=== PATIENT | female | born 1975 | race Caucasian/White ===

== ENCOUNTER 2016-07-01 17:09 | Emergency (ER) | payer OTHER ==
[~2016-07-01] VITALS: Ht 165.1 cm; Wt 79.4 kg
[~2016-07-01 17:09] MED LIST: CEFTIN500 M1 PO; CLINDAMYCIN HY300 MG PO; FERROUS SULFAT325 M1 PO; IMITREX ST6 MG/0.52 IM; KEFLEX500 MG PO; METOCLOPRAMIDE10 MG PO; MOBIC15 M1 PO; MOTRIN 400 MG400 MG PO; OMEPRAZOLE40 MG PO; PREDNISOLONE5 MG PO; PREDNISONE 10MG10 M1 PO; PREDNISONE 20MG20 MG; VICODIN5-300 PO; ZOMIG5 M1 NAS
[2016-07-01] MEDS ORDERED: ZITHROMAX250 M2 PO (21:40)
[2016-07-01] MEDS ORDERED: AFRIN30 ML NASB (21:40)
[2016-07-01] MEDS ORDERED: PROAIR HFA8.5 GM INH (21:40)
[2016-07-01] MEDS ORDERED: GUAIFENESIN-COD10 ML PO (21:40)
[2016-07-01] MEDS ORDERED: IBUPROFEN600 M1 PO (21:40)
--- NOTE | 2016-07-01 21:42 | ED INFLUENZA/URI COMPLAINT ---
History of Present Illness General Chief Complaint: General Adult Stated Complaint: "GLANDS ARE SWOLLEN", URISYMPTOMS Source: patient, old records Exam Limitations: no limitations Vital Signs & Intake/Output Vital Signs & Intake/Output Vital Signs Date Time Temp Pulse Resp B/P Pulse O2 O2 Flow FiO2 Ox Delivery Rate 07/014 101.9 07/01 2148 101.9 148 18 136/63 97 Room Air 07/01 2041 Room Air 07/01 1755 102.8 07/01 1745 102.8 148 18 136/91 96 Room Air ED Intake and Output 07/02 0000 07/01 1200 Intake Total Output Total Balance Patient 175 lb Weight Allergies Coded Allergies: amoxicillin (From AUGMENTIN) (Intermediate, VOMITING 01/17/16) clavulanic acid (From AUGMENTIN) (Intermediate, VOMITING 01/17/16) Reconcile Medications Albuterol Sulfate (Proair Hfa) 90 MCG HFA.AER.AD 2-4 PUF INH Q4-6 PRN PRN shortness of breath Azithromycin (Zithromax) 250 MG TABLET 1 TAB PO DAILY bronchitis Cefuroxime Axetil (Ceftin) 500 MG TABLET 1 TAB PO BID IFN with food Ibuprofen 600 MG TABLET 1 TAB PO Q6PRN PRN pain, fever with food Meloxicam (Mobic) 15 MG TABLET 1 TAB PO DAILY PRN PAIN Oxymetazoline HCl (Afrin) 0.05 % SPRAY 2 SPRAY NASB BID sinusitis Robitussin AC (Guaifenesin-Codeine Syrup) 200 MG-20 MG/10 ML LIQUID 10 ML PO Q6P PRN cough Sumatriptan Succinate (Imitrex) 6 MG/0.5 ML PEN.INJCTR 6 MG IM PRN MIGRAINES (Reported) Zolmitriptan (Zomig) 5 MG SPRAY 1 SPRAY KIRILL PRN MIGRAINES (Reported) Triage Note: PT TO TRIAGE WITH C/O CONGESTION, DRY COUGH, FEVER, HEADACHE x4DAYS. TEMP 102.8 IN TRIAGE. PT TOOK MOTRIN AT HOME ABOUT 4HR AGO. PT MEDICATED WITH TYLENOL 975MG PO IN TRIAGE PER MD KYLE ORDER. Triage Nurses Notes Reviewed? yes Onset: several days prior to admission Duration: day(s):, constant, continues in ED, getting worse Timing: recent history Severity: moderate Prior Episodes/Possible Cause: illness exposure No Modifying Factors: none Associated Symptoms: cough, fever/chills, muscle aches, nasal congestion, nasal drainage LMP (ages 10-50): unknown : No Patient currently breastfeeds: No HPI: Several days prior to admission patient complains of anorexia productive cough nasal congestion and body aches chills. She then developed fever. She denies chest pain shortness of breath dysuria rash bleeding . Past History Travel History Traveled to [place] past 21 day No Medical History Any Pertinent Medical History? 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 No Review of Systems Review of Systems Constitutional: Reports: see HPI, chills, fever, malaise. EENTM: Reports: see HPI, nasal congestion, throat pain. Respiratory: Reports: see HPI, cough, sputum production. Cardiovascular: Reports: no symptoms. GI: Reports: no symptoms. Genitourinary: Reports: no symptoms. Musculoskeletal: Reports: no symptoms. Skin: Reports: no symptoms. Neurological/Psychological: Reports: no symptoms. Hematologic/Endocrine: Reports: no symptoms. Immunologic/Allergic: Reports: no symptoms. All Other Systems: Reviewed and Negative Physical Exam Physical Exam General Appearance: well developed/nourished, alert, awake, anxious, moderate distress Head: atraumatic, normal appearance Eyes: Bilateral: normal appearance, PERRL, EOMI. Ears, Nose, Throat: moist mucous membrane, nasal congestion, nasal drainage, pharyngeal erythema Neck: normal inspection, supple, full range of motion, lymphadenopathy (R), lymphadenopathy (L) Respiratory: normal breath sounds, chest non-tender, no respiratory distress, quiet respiration, lungs clear Cardiovascular: regular rate/rhythm, normal peripheral pulses, norml femoral pulses equa Peripheral Pulses: 4+ carotid (R), 4+ carotid (L) Gastrointestinal: normal bowel sounds, soft, non-tender, no organomegaly Back: normal inspection, normal range of motion Extremities: normal inspection, normal capillary refill, normal range of motion, no edema Neurologic/Psych: no motor/sensory deficits, awake, alert, oriented x 3, normal gait, normal mood/affect, manager dental II-XII nml as tested Reflexes: 2+: bicep (R), bicep (L). Skin: intact, normal color, warm/dry Lymphatic: adenopathy Core Measures Severe Sepsis Present: No Septic Shock Present: No Progress Differential Diagnosis: influenza, pneumonia, pharyngitis, sinusitis Plan of Care: Orders Procedure Date/time Status RAPID VIRAL INFLUENZA A 07/01 1937 Complete THROAT CULTURE W/QUICK STREP 07/01 1937 Active Microbiology 07/01 2013 NASOPHARYN: Influenza Virus A & B Rapid Smear - COMP Initial ED EKG: none Departure Departure Time of Disposition: 2136 Disposition: HOME OR SELF CARE Condition: Stable Clinical Impression Primary Impression: Sinusitis, acute Qualifiers: Sinusitis location: unspecified location Recurrence: not specified as recurrent Qualified Code: J01.90 - Acute sinusitis, unspecified Secondary Impressions: Bronchitis Fever Qualifiers: Fever type: unspecified Qualified Code: R50.9 - Fever, unspecified Referrals: CASIMIRO SIEGEL,MACHO Rowan (PCP/Family) Departure Forms: Customer Survey General Discharge Information RELEASE- WORK Prescriptions: Current Visit Scripts Azithromycin (Zithromax) 1 TAB PO DAILY #4 TAB Oxymetazoline HCl (Afrin) 2 SPRAY NASB BID #30 ML Ibuprofen 1 TAB PO Q6PRN PRN pain, fever #50 TAB with food Albuterol Sulfate (Proair Hfa) 2-4 PUF INH Q4-6 PRN PRN shortness of breath #1 INHAL Robitussin AC (Guaifenesin-Codeine Syrup) 10 ML PO Q6P PRN cough #240 ML
[2016-07-01 21:49] VITALS: BP 136/63
== END 2016-07-01 21:55 ==
LOC: ERH 17:09
DX: J01.90 Acute sinusitis, unspecified (principal)
CPT/HCPCS: 87804; 87804-59; J0456

== ENCOUNTER 2016-07-03 09:52 | Inpatient (IN) | payer OTHER ==
[~2016-07-03] VITALS: Ht 165.1 cm; Wt 81.6 kg
[~2016-07-03 09:52] MED LIST changes: +AFRIN30 ML NASB; +GUAIFENESIN-COD10 ML PO; +IBUPROFEN600 M1 PO; +PROAIR HFA8.5 GM INH; +ZITHROMAX250 M2 PO
--- NOTE | 2016-07-03 10:02 | ED GENERAL ADULT ---
See Addendum History of Present Illness General Chief Complaint: Dyspnea (COPD, CHF, Other) Stated Complaint: SOB Source: patient, old records, EMS Exam Limitations: no limitations Vital Signs & Intake/Output Vital Signs & Intake/Output Vital Signs Date Time Temp Pulse Resp B/P Pulse O2 O2 Flow FiO2 Ox Delivery Rate 07/03 1137 144 32 76/56 Nasal 5.0L Cannula 07/03 1030 Nasal 4.0L Cannula 07/03 1012 102.0 155 36 90/60 Nasal 3.0L Cannula Allergies Coded Allergies: amoxicillin (From AUGMENTIN) (Intermediate, VOMITING 07/03/16) clavulanic acid (From AUGMENTIN) (Intermediate, VOMITING 07/03/16) Reconcile Medications Albuterol Sulfate (Proair Hfa) 90 MCG HFA.AER.AD 2-4 PUF INH Q4-6 PRN PRN shortness of breath Azithromycin (Zithromax) 250 MG TABLET 1 TAB PO DAILY bronchitis Cefuroxime Axetil (Ceftin) 500 MG TABLET 1 TAB PO BID IFN with food Ibuprofen 600 MG TABLET 1 TAB PO Q6PRN PRN pain, fever with food Meloxicam (Mobic) 15 MG TABLET 1 TAB PO DAILY PRN PAIN Oxymetazoline HCl (Afrin) 0.05 % SPRAY 2 SPRAY NASB BID sinusitis Robitussin AC (Guaifenesin-Codeine Syrup) 200 MG-20 MG/10 ML LIQUID 10 ML PO Q6P PRN cough Sumatriptan Succinate (Imitrex) 6 MG/0.5 ML PEN.INJCTR 6 MG IM PRN MIGRAINES (Reported) Zolmitriptan (Zomig) 5 MG SPRAY 1 SPRAY KIRILL PRN MIGRAINES (Reported) Triage Nurses Notes Reviewed? yes HPI: PT PRESENTS BY AMBULANCE FOR PROFOUND WEAKNESS, THIRSTY, PROFOUND DIARRHEA. pATIENT STATES THAT SHE WAS SEEN THE OTHER DAY AND DIAGNOSED WITH BRONCHITIS. SHEWAS STARTED ON A Z-PACK. AFTER THE SECOND DOSE, SHE DEVELOPED PROUND DIARRHEA. SHE DENIES NAUSEA OR VOMITING, NO ABD PAIN. NO FEVERS BUT +CHILLS. SHE SATTES THAT SHE HAS BEEN DRINKING "A LOT OF WATER." PT FOUND TO HAVE WHAT APPEAR TO BE TRACK COATES ON HER ARMS BUT SGHE STATES THAT IT WAS FROM CLEANING AROUND HER HOUSE. Past History Travel History Traveled to [place] past 21 day No Medical History Any Pertinent Medical History? 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 No Review of Systems Review of Systems Constitutional: Reports: see HPI, chills, weakness. EENTM: Reports: no symptoms. Respiratory: Reports: see HPI, short of breath. Cardiovascular: Reports: no symptoms. GI: Reports: see HPI, diarrhea. Genitourinary: Reports: no symptoms. Musculoskeletal: Reports: no symptoms. Skin: Reports: no symptoms. Neurological/Psychological: Reports: no symptoms. Hematologic/Endocrine: Reports: no symptoms. Immunologic/Allergic: Reports: no symptoms. All Other Systems: Reviewed and Negative Physical Exam Physical Exam General Appearance: well developed/nourished, alert, awake, anxious, severe distress Head: atraumatic, normal appearance Eyes: Bilateral: PERRL, EOMI. Ears, Nose, Throat: normal pharynx, DRY MUCOSA Neck: normal inspection, supple, full range of motion Respiratory: normal breath sounds, chest non-tender, no respiratory distress, lungs clear, [place] Cardiovascular: normal peripheral pulses, tachycardia Gastrointestinal: normal bowel sounds, soft, non-tender, no organomegaly Back: normal inspection, normal range of motion Extremities: normal inspection, normal capillary refill, normal range of motion, no edema Neurologic/Psych: no motor/sensory deficits, awake, alert, oriented x 3, normal mood/affect Skin: diaphoresis, pallor Lymphatic: no anterior cervical cris Core Measures ACS in differential dx? No CVA/TIA Diagnosis: No Severe Sepsis Present: Yes Septic Shock Present: Yes ED Sepsis Exam Date of Focused Sepsis Exam: 07/03/16 Time of Focused Sepsis Exam: 1100 Sepsis Cardiac Exam: Tachycardia Sepsis Resp Exam: CTA Sepsis Cap Refill Exam: <2 Sec Sepsis Peripheral Pulse Exam: Weak Sepsis Peripheral Pulse Location: Radial Sepsis Skin Color Exam: Mottled, Pale Skin Temp/Moisture Exam: Cool/Dry Progress Differential Diagnoses I considered the following diagnoses in my evaluation of the patient: [ DEHYDRATION, SEPSIS, C.DIFF, UTI, BACTERMIA] Plan of Care: Orders Procedure Date/time Status LACTIC ACID 07/03 1401 Active Pathway - chart 07/03 1139 Active House Staff 07/03 1139 Active Code Status 07/03 1139 Active Patient Data 07/03 1133 Active Add-on Test (ER Only) 07/03 1133 Active Admit to inpatient 07/[address] ABD & PELVIS W/O IV CONTRAS 07/03 1121 Active XRY-PORTABLE CHEST XRAY 07/03 1108 Active Montoya, Insertion/Removal/Asses 07/03 1108 Active CULTURE,URINE 07/03 1108 Active URINE DRUGS OF ABUSE 07/03 1101 Active LACTIC ACID 07/03 1101 Active ARTERIAL BLOOD GAS (GEN) 07/03 1023 Complete BLOOD CULTURE 07/03 1023 Active Telemetry/Nurse Supervisor 07/03 1001 Active C.DIFFICILE 07/03 1001 Active URINALYSIS 07/03 1001 Active TROPONIN LEVEL 07/03 1001 Complete HUMAN BETA HCG SCREEN 07/03 1001 Complete COMPREHENSIVE METABOLIC PANEL 07/03 1001 Complete CBC WITHOUT DIFFERENTIAL 07/03 1001 Complete EKG 07/03 1001 Active VTE Mechanical Prophylaxis 07/03 UNK Active Vital Signs 07/03 UNK Active Intake & Output 07/03 UNK Active Current Medications Sig/Narendra Start time Last Medication Dose Stop Time Status Admin Heparin Sodium 5,000 UNIT Q8 07/03 1400 UNVr (Porcine) Sodium Chloride 1,000 ML BOLUS ONE 07/03 1115 AC (Normal Saline 0.9%) 07/03 1214 Sodium Chloride 1,000 ML BOLUS ONE 07/03 1115 AC (Normal Saline 0.9%) 07/03 1214 Laboratory Tests 07/03/16 1111: Methadone Screen Pending, Barbiturate Screen Pending, Ur Phencyclidine Scrn Pending, Amphetamines Screen Pending, U Benzodiazepines Scrn Pending, Urine Cocaine Screen Pending, Urine Cannabis Screen Pending, Urine Color Pending, Urine Clarity Pending, Urine pH Pending, Ur Specific [place] Pending, Urine Protein Pending, Urine Ketones Pending, Urine Nitrite Pending, Urine Bilirubin Pending, Urine Urobilinogen Pending, Ur Leukocyte Esterase Pending, Ur Microscopic SEDIMENT EXAMINED, Urine RBC Pending, Urine Hemoglobin Pending, Urine Glucose Pending 07/03/16 1040: pH 7.33 L, pCO2 24 L, pO2 83, HCO3 13 L, ABG O2 Sat (Measured) 92.0 L, P-50 (Temp Corrected) Y, Carboxyhemoglobin 0.3 L, O2 Concentration % 5L, Temperature 102.0 H, O2 Delivery Method NC, Phlebotomy Draw Site RIGHT RADIAL 07/03/16 1020: Anion Gap 19 H, Estimated GFR 10 L, BUN/Creatinine Ratio 7.9, Glucose 178 H, Calcium 7.2 L, Total Bilirubin 4.4 H, AST 93 H, ALT 120 H, Alkaline Phosphatase 47, Troponin I < 0.01, Total Protein 5.4 L, Albumin 2.6 L, Globulin 2.8, Albumin/Globulin Ratio 0.9 L, Total Beta HCG NEGATIVE, CBC w Diff MAN DIFF ORDERED, RBC 4.03 L, MCV 82.8, MCH 28.0, RDW 14.6 H, MPV 10.4, Lymphocytes 93 H, Monocytes 3, Eosinophils 3, Basophils 1, Platelet Estimate DECREASED, Poikilocytosis 2+, Anisocytosis 1+, Reeves Cells 2+, PUBS MCHC 33.8 Microbiology 07/03 1111 URINE ROUT: Urine Culture - RECD 07/03 1057 BLOOD: Blood Culture - RECD 07/03 1045 STOOL: Clostridium difficile Toxin A & B - RECD 07/03 1025 BLOOD: Blood Culture - RECD RECOMMEND HIV TESTING (PRACHI SIEGEL,KENDRA Lazaro) Diagnostic Imaging: Viewed by Me: Radiology Read. Discussed w/RAD: Radiology Read. Pre-Hospital EKG: S TACH WITH NSSTT CHANGES Initial ED EKG: S TACH AT 147, NSSTT CHANGES Prior EKG: unchanged Rhythm Strip: sinus tachycardia Comments: HOLD OFF ON ABX UNTIL C.DIFF COMES BACK. Departure Departure Disposition: STILL A PATIENT Condition: Critical Clinical Impression Primary Impression: Metabolic acidosis Secondary Impressions: Acute renal failure, Diarrhea, Sepsis, Septic shock Referrals: CASIMIRO SIEGEL,MACHO Rowan (PCP/Family) Departure Forms: Customer Survey General Discharge Information Admission Note Spoke With: ABIGAIL SOLO MD Documentation of Exam: Documentation of any treatments & extenuating circumstances including Concerns Regarding Discharge (functional status, medication knowledge or non-compliance, living conditions, etc.) that warrant an admission rather than observation: [ AGGRESSIVE HYDRATION, RENAL CONSULT, ID CONSULT, FOLLOW UP C.DIFF, MAY NEED HIV TESTING, ICU ADMISSION] Critical Care Note Critical Care Note Critical Care Time: mins: (45 MIN)
[2016-07-03 10:46] LABS: HEMATOCRIT 33.4 % (37-47); MEAN CORPUSCULAR HGB CONC 33.8 G/DL (33.0-37.0); MEAN CORPUSCULAR VOLUME 82.8 FL (81.0-99.0); MEAN PLATELET VOLUME 10.4 FL (7.4-10.4); PLATELET COUNT 49 /CUMM (130-400); RBC DISTRIBUTION WIDTH 14.6 % (11.5-14.5); RED BLOOD CELL CT 4.03 /CUMM (4.20-5.40)
[2016-07-03 11:04] LABS: WHITE BLOOD CELL COUNT 1.1 /CUMM (4.8-10.8)
--- NOTE | 2016-07-03 12:04 | RADIOLOGY REPORT ---
EXAMINATION: XR PORTABLE CHEST CLINICAL INFORMATION: Shortness of breath. Pneumonia. COMPARISON: Chest x-ray dated 02/27/2012. TECHNIQUE: Portable AP semierect view of the chest was obtained. FINDINGS: The cardiomediastinal silhouette is within normal limits in size. There is dense opacity seen in the right midlung, obscuring the right heart border, new from prior exam. This is nonspecific, but in the clinical setting provided, most likely represents a dense lobar pneumonia. There is also some patchy opacity centrally within the right lower lobe. Remainder of the lungs is clear. Bony structures are unremarkable. IMPRESSION: Dense consolidation in right midlung, likely in the upper lobe, abutting the right minor fissure, suspicious for lobar pneumonia. There is also some extension into the right lower lobe. Close clinical correlation and follow-up chest x-ray is recommended post treatment to document resolution of findings and exclude an underlying mass. Findings discussed with Dr. Schaffer 07/03/2016, 11:55 AM.
--- NOTE | 2016-07-03 12:28 | History & Physical ---
NEGRO SIEGEL,WILFRIDO 07/03/16 1214: General Information and HPI MD Statement: I have seen and personally examined KARINAREYNOLD Robert and documented this H &P. The patient is a 40 year old F who presented with a patient stated chief complaint of [acute shortness of breath]. Source of Information: patient, family, old records Exam Limitations: clinical condition, confusion History of Present Illness: 40 yo female with pmh of polysubstance abuse, subacute thyroiditis, migraine headache, anemia, current smoking (1 ppd > 10 yrs), who was treated for submandibular cellulitis in 2014, came from home due to worsening dyspnea for 3 days. She was restless with confusion, and most of information was from her boyfriend and her father. She and her boyfriend had upper respiratory symtpoms ( cough/sputum) from this Tuesday. Her boyfriend got better, but she developed fever at home, and she came to [facility] ED on 07/01 diagnosed as acute bronchitis/ sinusitis. Influenza A was negative at that time. She was discharged to home with po azithromycin. After 2 days of taking po azithromycin, she started having watery diarrhea > 5 times with mucous. She c/o abdominal pain but denies nausea/ vomiting. She has productive cough with yellowish sputum / shortness of breath. She denies dysuria or burning sensation. Current smoker. She denies any IV/INH drug abuse including cocaine/marijuana/heroine. Allergies/Medications Allergies: Coded Allergies: amoxicillin (From AUGMENTIN) (Intermediate, VOMITING 07/03/16) clavulanic acid (From AUGMENTIN) (Intermediate, VOMITING 07/03/16) Home Med list Albuterol Sulfate (Proair Hfa) 90 MCG HFA.AER.AD 2-4 PUF INH Q4-6 PRN PRN shortness of breath Atomoxetine HCl (Strattera) 40 MG CAPSULE 1 CAP PO QAM UNKNOWN (Reported) Azithromycin (Zithromax) 250 MG TABLET 1 TAB PO DAILY bronchitis Clonazepam 0.5 MG TABLET 1 TAB PO BID PRN ANXIETY (Reported) Eletriptan HBr (Relpax) 40 MG TABLET 1 TAB PO AD PRN MIGRAINE (Reported) Ibuprofen 600 MG TABLET 1 TAB PO Q6PRN PRN pain, fever with food Levonorgestrel (Mirena) 20 MCG/24 HOUR (5 YEARS) IUD CONTROL (Reported) Lisdexamfetamine Dimesylate (Vyvanse) 10 MG CAPSULE 1 CAP PO QAM CONCENTRATION (Reported) Naproxen 500 MG TABLET 1 TAB PO BID PRN PAIN/INFLAMMATION (Reported) Oxymetazoline HCl (Afrin) 0.05 % SPRAY 2 SPRAY NASB BID sinusitis Prochlorperazine Maleate 10 MG TABLET 1 TAB PO BID PRN MIGRAINES (Reported) Robitussin AC (Guaifenesin-Codeine Syrup) 200 MG-20 MG/10 ML LIQUID 10 ML PO Q6P PRN cough Sumatriptan 20 MG SPRAY 1 SPRAY KIRILL AD PRN MIGRAINES (Reported) Sumatriptan Succinate (Imitrex) 6 MG/0.5 ML PEN.INJCTR 6 MG AD AD PRN MIGRAINES (Reported) Past History Travel History Traveled to [place] past 21 day No Medical History Neurological: migraine EENT: NONE Cardiovascular: NONE Respiratory: NONE Gastrointestinal: NONE Hepatic: NONE Renal: NONE Musculoskeletal: NONE Psychiatric: polysubstance abuse Endocrine: subacute thyroiditis Blood Disorders: anemia Cancer(s): NONE FLIGHT SERVICE AGENT/Reproductive: NONE History of MRSA: No History of VRE: No History of CDIFF: No Surgical History Surgical History: Past Family/Social History Family History Relations & Conditions if any FATHER FH: kidney cancer FHx: thyroid cancer MOTHER FH: diabetes mellitus FHx: migraine headaches Psychosocial History Services at Home: None ETOH Use: denies use Illicit Drug Use: cocaine, heroin, DENIES CURRENT USE Functional Ability ADLs Independent: dressing, eating, toileting, bathing. Ambulation: independent IADLs Independent: shopping, housework, finances, food prep, telephone, transportation , medication admin. Sexual History Sexually Active Yes # of partners 1 Employment History Employment Employed Profession/Employer [employer] Review of Systems Review of Systems Constitutional: Reports: chills, diaphoresis, fever, weakness. EENTM: Reports: no symptoms. Cardiovascular: Reports: palpitations. Denies: chest pain, peripheral edema. Respiratory: Reports: cough, short of breath, sputum production. GI: Reports: abdominal pain, diarrhea. Denies: constipation, nausea, vomiting. Genitourinary: Denies: dysuria, frequency, pain. Musculoskeletal: Reports: no symptoms. Skin: Reports: change in skin color. Neurological/Psychological: Reports: confusion. Hematologic/Endocrine: Reports: no symptoms. Immunologic/Allergic: Reports: no symptoms. Exam & Diagnostic Data Last 24 Hrs of Vital Signs/I&O Vital Signs Date Time Temp Pulse Resp B/P Pulse O2 O2 Flow FiO2 Ox Delivery Rate 07/03 1245 130 20 90/00 Ventilator 07/03 1215 141 20 72/56 Nasal 5.0L Cannula 07/03 1137 144 32 76/56 Nasal 5.0L Cannula 07/03 1030 Nasal 4.0L Cannula 07/03 1012 102.0 155 36 90/60 Nasal 3.0L Cannula Intake & Output 07/03 1600 07/03 0800 07/03 0000 Intake Total 2000 Output Total Balance 2000 Intake, IV 2000 Patient 180 lb Weight Physical Exam General Appearance Severe Distress, CONFUSED, NOT ORIENTED X TIME, patient feels very tired/restless Skin No Rashes, No Breakdown, No Significant Lesion HEENT Atraumatic, PERRLA, EOMI, DRY MOUTH Neck Supple, No JVD, No LAD Lymphatic Cervical nl Cardiovascular Normal S1, Normal S2, No Murmurs, TACHYCARDIC Lungs COARSE BREATHNG SOUND, RHONCHI/RALES BILATERALLY Abdomen Soft, ALL 4 QUADRANT MILD TENDERNESS +, NO rTD Neurological Strength at 5/5 X4 Ext, Normal Tone, Reflexes 2+, pt is confused, unable to follow commands, moving all 4 extremities Extremities No Edema, diminished pulses, clammy Vascular Pulses Symmetrical, diminished pulses Body Front and Back (Adult) 1) 2 superficial skin wounds with scabs Last 24 Hrs of Labs/Dorian: Laboratory Tests 07/03/16 1111: Urine Opiates Screen > 4000.00 H, Methadone Screen 62, Barbiturate Screen 231 H, Ur Phencyclidine Scrn < 6.00, Amphetamines Screen 985, U Benzodiazepines Scrn 92, Urine Cocaine Screen 529 H, Urine Cannabis Screen < 5.00, Urinalysis MOD H , Urine Color YEL, Urine Clarity CLDY H, Urine pH 6.0, Ur Specific [place] 1.025, Urine Protein 100 H, Urine Ketones NEG, Urine Nitrite POS H, Urine Bilirubin POS@ICTO H, Urine Urobilinogen 1.0, Ur Leukocyte Esterase NEG, Ur Microscopic SEDIMENT EXAMINED, Urine RBC RARE, Urine WBC 3-5 H, Ur Epithelial Cells MANY H, Granular Casts RARE H, Urine Mucus FEW, Urine Hemoglobin MOD H, Urine Glucose 100 H 07/03/16 1040: pH 7.33 L, pCO2 24 L, pO2 83, HCO3 13 L, ABG O2 Sat (Measured) 92.0 L, P-50 (Temp Corrected) Y, Carboxyhemoglobin 0.3 L, O2 Concentration % 5L, Temperature 102.0 H, O2 Delivery Method NC, Phlebotomy Draw Site RIGHT RADIAL 07/03/16 1020: Anion Gap 19 H, Estimated GFR 10 L, BUN/Creatinine Ratio 7.9, Glucose 178 H, Calcium 7.2 L, Total Bilirubin 4.4 H, AST 93 H, ALT 120 H, Alkaline Phosphatase 47, Troponin I < 0.01, Total Protein 5.4 L, Albumin 2.6 L, Globulin 2.8, Albumin/Globulin Ratio 0.9 L, Total Beta HCG NEGATIVE, CBC w Diff MAN DIFF ORDERED, RBC 4.03 L, MCV 82.8, MCH 28.0, RDW 14.6 H, MPV 10.4, Lymphocytes 93 H, Monocytes 3, Eosinophils 3, Basophils 1, Platelet Estimate DECREASED, Poikilocytosis 2+, Anisocytosis 1+, [place] Cells 2+, PUBS MCHC 33.8, Hepatitis A IgM Ab Pending, Hep Bs Antigen NONREACTIVE, Hep B Core IgM Ab Conf Pending, Hepatitis C Antibody Pending, HIV 1&2 Ab Western Blot Pending Microbiology 07/03 1218 NASOPHARYN: Influenza Virus A & B Rapid Smear - CAN Cancelled: Cancelled via OE: Error 07/03 1219 LOWER RESP: Respiratory Culture - ORD 07/03 1219 LOWER RESP: Gram Stain - ORD 07/03 1111 URINE ROUT: Urine Culture - RECD 07/03 1057 BLOOD: Blood Culture - RECD 07/03 1045 STOOL: Clostridium difficile Toxin A & B - RECD 07/03 1025 BLOOD: Blood Culture - RECD Diagnostic Data EKG Results sinus tachycardia 147, normal axis, KS 132, QTc 426, PVCs CXR Results Dense consolidation in right midlung, likely in the upper lobe, abutting the right minor fissure, suspicious for lobar pneumonia. There is also some extension into the right lower lobe. Close clinical correlation and follow-up chest x-ray is recommended post treatment to document resolution of findings and exclude an underlying mass. Assessment/Plan Assessment: 40 yo female with history of polysubstance abuse with recent URI symptoms p/w acute respiratory failure 2/2 severe sepsis likely due to multilobar pneumonia / diarrhea (questionable C.diff) in the setting of cocaine/opiate abuse. Respiratory: Acute respiratory failure secondary to severe sepsis/multiplobar pneumonia. Pt was in severe respiratory distress with tachycardia / tachypnea while interviewing. She had PEA in ED at 12:35 pm and she was coded about 4 mins. She was intubated by Dr. Schaffer, continuing cardiac compression, IV epinephrine 1mg x 2 times were given. Continue mechanical ventilation, check ABG /chest xray after intubation. Infection: Severe sepsis likely multilobar pneumonia/questionable C.diff colitis. She has positive u tox cocaine/opiate/barbiturate. She had 2 superficial skin wound (?puncture wound) on Lt. hand. Will check HIV/hepatitis panel. Cover with broad spectrum abx Vancomycin/ceftazidime and azithromycin for atypical pneumonia. Will get CT head, chest, abdomen/pelvis WO contrast. follow up blood/sputum/urine cultures/c.diff. Cardiovascular: s/p CPR, severe sepsis with hypotension. Rt. femoral line was placed in ED. She was started on IV levophed in ED. Maintain MAP > 65. Will get cardiology consult. Last echo in 2014 showed normal EF 70% with no vegetation. Serial EKG/troponins, repeat echocardiogram, LE DVT doppler. Hematology: Pancytopenia with leukopenia, normocytic anemia, thrombocytopenia. Neutropenic / thrombocytopenic precaution. Guiac stool/sputum. Check HIV, LDH/ haptoglobin, manual diff for schistocytes. Check DIC pannel. Metabolic: High AG metabolic acidosis, lactic acid was not sent, follow lactic acids & bicarb level, ICU bundle @ 4pm. Will get serum Osm to calculate Osm gap. Alimentary: NPO for now Neurologic: Patient is altered, now on mechanical ventilation with acute respiratory failure, hold anesthetic agent, check stat head CT with positive U tox cocaine. DVT ppx: ALPS after checking LE doppler Full code now on mechanical ventilation & IV pressors. As Ranked By This Provider Problem List: 1. Septic shock 2. Pneumonia 3. Cardiopulmonary arrest 4. Acute renal failure 5. Metabolic acidosis 6. Diarrhea 7. Pancytopenia Core Measures/Miscellaneous Acute Coronary Syndrome ACS Diagnosis: No Cerebrovascular Accident CVA/TIA Diagnosis: No Congestive Heart Failure CHF Diagnosis: No Venous Thromboembolism VTE Risk Factors: Acute medical illness, Age > 40 VTE Prophylaxis Ordered Inpt: Mechanical (ALPS/TEDS) [facility] d/t: No contraindications No VTE Pharm Prophylaxis d/t: Platelets below ref range VTE Diagnosis: No VTE Type: NONE VTE Confirmed by (Test): NONE Severe Sepsis Severe Sepsis Present: Yes BC x2: Yes Lactic Acid x2: Yes IV ABX Broad Spectrum: Yes NS/LR Started: Yes Septic Shock Septic Shock Present: Yes BC x2: Yes Lactic Acid: Yes IV ABX Broad Spectrum: Yes Focused Exam Completed: Yes NS/LR 30ml/kg w/in 3hrs: Yes IV Vasopressors started: Yes Miscellaneous Documentation Attending Case Discussed With: ABIGAIL SOLO MD Primary Care Physician: MACHO KIRKPATRICK MD Patient sees these Specialists NA Level of Patient Care: Critical Care (CRI) Resident Review Statement Resident Statement: examined this patient, discussed with internal medicine doctor, agreed with internal medicine doctor, discussed with family, reviewed EMR data (avail), discussed with nursing , discussed with case mgmt, reviewed images, amended to note Other Findings: As above ABIGAIL SOLO MD 07/03/16 1311: Attending MD Review Statement Attending Statement Attending MD Statement: examined this patient, discuss w/resident/PA/VAMP SEAMER, agreed w/resident/PA/VAMP SEAMER, discussed with family, reviewed EMR data (avail), discussed with nursing, discussed with case mgmt, reviewed images, amended to note Attending Assessment/Plan: Impression 40 year old woman - Cardiac arrest - asystole - Acute hypoxemic respiratory failure - Multiorgan dysfunction - NELIDA - septic shock vs hypovolemic shock - positive drug toxicology for opiates, barbiturates and cocaine - pancytopenia - unresponsiveness Plan Respiratory -continue mechanical venitlation -stat abg -confirmatory cxr ID -Vancomycin/Ceftazadime/Zithromax -monitor levels given renal function -panculture -influenza swab -hiv check/hepatits panel check CVS -begin levophed -titrate to MAP of 65 -ECHO -BNP, troponin trend -Cardiology consultation Heme -leukopenia, thrombocytopenia, anemia -check LDH/heptaglobin -coags Metabolic -check lactate and trend if elevated -ins/outs -hydration -nephrology consultation is appreciated Alimentary -NPO Neuro - CT Head - Hypothermia protocol will be initiated CT Head/chest/abd/pelvis without contrast given renal failure DVT prophylaxis with ALPS after LE dopplers are completed TTS 60 min
--- NOTE | 2016-07-03 13:29 | Admission Certification ---
Admission Certification Certification Statement - As attending physician, I certify that at the time of - admission, based on clinical presentation, severity of - symptoms, need for further diagnostic testing and - therapeutic interventions, and risk of adverse outcomes - without in-hospital treatment, in my clinical assessment, - this patient requires an acute hospital stay for a minimum - of two nights or longer. I have also considered psychsocial - factors such as support system, advanced age, financial - issues, cognitive issues, and failed out-patient treatments, - past re-admission history, safety of patient, and lack of - compliance as applicable. Specific rationale supporting this admission is: acute hypoxemic respiratory failure requiring intubation, underlying septic vs hypovolemic shock requiring vasopressors critically ill, ICU level of care. Hypothermia protocol.
--- NOTE | 2016-07-03 13:46 | Cons- Nephrology ---
General Information and HPI Consulting Request Date of Consult: 07/03/16 Requested By: ABIGAIL SOLO MD Reason for Consult: NELIDA Source of Information: old records Exam Limitations: unable to give history, clinical condition History of Present Illness: The patient is a 40-year-old female with a history of polysubstance abuse, who was recently started on azithromycin for a fever and possible upper respiratory tract infection, by the emergency room. Labs were not drawn at that time last week. She now comes in with fever (102), weakness, diarrhea and shortness of breath. She became severely hypotensive in the ER and With agonal breathing and subsequently arrested and required 4 minutes of CPR, status post epinephrine 2. Olsen catheter was placed with minimal urine output. She's currently obtunded and unable to provide any history. I been asked to see her as her creatinine was 4.8 on admission. There is also a elevated anion gap metabolic acidosis and lactic acid is pending. She also noted to be pancytopenic with a white blood count 1.1 platelet count of 49 and hemoglobin of 11.3. Baseline creatinine was 0.6 in October 2014. Allergies/Medications Allergies: Coded Allergies: amoxicillin (From AUGMENTIN) (Intermediate, VOMITING 07/03/16) clavulanic acid (From AUGMENTIN) (Intermediate, VOMITING 07/03/16) Home Med List: Albuterol Sulfate (Proair Hfa) 90 MCG HFA.AER.AD 2-4 PUF INH Q4-6 PRN PRN shortness of breath Azithromycin (Zithromax) 250 MG TABLET 1 TAB PO DAILY bronchitis Cefuroxime Axetil (Ceftin) 500 MG TABLET 1 TAB PO BID IFN with food Ibuprofen 600 MG TABLET 1 TAB PO Q6PRN PRN pain, fever with food Meloxicam (Mobic) 15 MG TABLET 1 TAB PO DAILY PRN PAIN Oxymetazoline HCl (Afrin) 0.05 % SPRAY 2 SPRAY NASB BID sinusitis Robitussin AC (Guaifenesin-Codeine Syrup) 200 MG-20 MG/10 ML LIQUID 10 ML PO Q6P PRN cough Sumatriptan Succinate (Imitrex) 6 MG/0.5 ML PEN.INJCTR 6 MG IM PRN MIGRAINES (Reported) Zolmitriptan (Zomig) 5 MG SPRAY 1 SPRAY KIRILL PRN MIGRAINES (Reported) Current Medications: Current Medications Sig/Narendra Start time Last Medication Dose Route Stop Time Status Admin Albuterol Sulfate 3 ML Q4H 07/03 1215 AC INH Azithromycin 500 MG DAILY@1400 07/03 1400 AC Dextrose/Water 250 ML IV Ceftazidime 1,000 MG Q24H 07/03 1400 AC IV Ceftriaxone Sodium 0 .STK-MED ONE 07/03 1228 DC .ROUTE Ceftriaxone Sodium 1,000 MG ONCE ONE 07/03 1215 DC 07/03 IV 07/03 1216 1314 Epinephrine 1 MG ONCE ONE 07/03 1315 DC 07/03 IV 07/03 1316 1311 Epinephrine 1 MG ONCE ONE 07/03 1315 DC 07/03 IV 07/03 1316 1311 Heparin Sodium 5,000 UNIT Q8 07/03 1400 CAN (Porcine) SC Norepinephrine 0 .STK-MED ONE 07/03 1322 DC IV Norepinephrine 4 MG Q24H 07/03 1315 AC Sodium Chloride 250 ML IV Sodium Chloride 1,000 ML BOLUS ONE 07/03 1330 UNVr IV 07/03 1429 Sodium Chloride 1,000 ML BOLUS ONE 07/03 1330 UNVr IV 07/03 1429 Sodium Chloride 1,000 ML BOLUS ONE 07/03 1115 DC 07/03 IV 07/03 1214 1204 Sodium Chloride 1,000 ML BOLUS ONE 07/03 1115 DC 07/03 IV 07/03 1214 1309 Sodium Chloride 1,000 ML BOLUS ONE 07/03 1000 DC 07/03 IV 07/03 1059 1012 Sodium Chloride 1,000 ML BOLUS ONE 07/03 1000 DC 07/03 IV 07/03 1059 1121 Vancomycin HCl 1,000 MG ONE ONE 07/03 1400 AC Dextrose/Water 250 ML IV 07/03 1459 Review of Systems Review of Systems: Unable to obtain as obtunded and intubated Past History Travel History Traveled to [place] past 21 day No Medical History Neurological: migraine EENT: NONE Cardiovascular: NONE Respiratory: NONE Gastrointestinal: NONE Hepatic: NONE Renal: NONE Musculoskeletal: NONE Psychiatric: polysubstance abuse Endocrine: subacute thyroiditis Blood Disorders: anemia Cancer(s): NONE DIRECTOR PHARMACOLOGY/Reproductive: NONE Surgical History Surgical History: Family History Relations & Conditions If Any: FATHER FH: kidney cancer FHx: thyroid cancer MOTHER FH: diabetes mellitus FHx: migraine headaches Psychosocial History Services at Home: None ETOH Use: denies use Illicit Drug Use: cocaine, heroin, DENIES CURRENT USE Functional Ability ADLs Independent: dressing, eating, toileting, bathing. Ambulation: independent IADLs Independent: shopping, housework, finances, food prep, telephone, transportation , medication admin. Employment History Employment: Employed Profession/Employer: [employer] Exam & Diagnostic Data Vital Signs and I&O Vital Signs Date Time Temp Pulse Resp B/P Pulse O2 O2 Flow FiO2 Ox Delivery Rate 07/03 1245 130 20 90/00 Ventilator 07/03 1215 141 20 72/56 Nasal 5.0L Cannula 07/03 1145 94 Nasal 5.0L Cannula 07/03 1137 144 32 76/56 Nasal 5.0L Cannula 07/03 1030 Nasal 4.0L Cannula 07/03 1012 102.0 155 36 90/60 Nasal 3.0L Cannula Intake & Output 07/03 1600 07/03 0400 07/02 1600 07/02 0400 07/01 1600 07/01 040 Intake Total 1999 Output Total Balance 1999 Intake, IV 2000 Patient 180 lb Weight Physical Exam: General: intubated/obtunded HEENT: dry mucosa +dilated pupils Neck: negative for VICENTA CV: RRR, no m/r/g Pulm: CTAB, no rales Abd: soft no rebound/guarding Lower Ext: neg edema or chronic venous changes Back: negative for CVA tenderness Neuro: neg tremor, asterixis Skin: +mottled skin : + olsen catheter Results Pertinent Lab Results: Laboratory Tests 07/03 07/03 1111 1040 Blood Gas pH (7.35 - 7.45 PH) 7.33 L pCO2 (35 - 45 TORR) 24 L pO2 (80 - 100 TORR) 83 HCO3 (21 - 28 MEQ/L) 13 L ABG O2 Sat (Measured) (>96.0 %) 92.0 L P-50 (Temp Corrected) Y Carboxyhemoglobin (1.5 - 5.0 %) 0.3 L O2 Concentration % 5L Temperature (97.0 - 100.0 FARH) 102.0 H O2 Delivery Method NC Miscellaneous Phlebotomy Draw Site RIGHT RADIAL Toxicology Urine Opiates Screen (>2000 NG/ML) > 4000.00 H Methadone Screen (>300 NG/ML) 62 Barbiturate Screen (>200 NG/ML) 231 H Ur Phencyclidine Scrn (>25 NG/ML) < 6.00 Amphetamines Screen (>1000 NG/ML) 985 U Benzodiazepines Scrn (>200 NG/ML) 92 Urine Cocaine Screen (>300 NG/ML) 529 H Urine Cannabis Screen (>50 NG/ML) < 5.00 Urines Urinalysis MOD H Urine Color (YEL,AMB,STR) YEL Urine Clarity (CLEAR) CLDY H Urine pH (5.0 - 8.0) 6.0 Ur Specific [place] (1.001 - 1.035) 1.025 Urine Protein (NEG,<30 MG/DL) 100 H Urine Ketones (NEG) NEG Urine Nitrite (NEG) POS H Urine Bilirubin (NEG) POS@ICTO H Urine Urobilinogen (0.1 - 1.0 EU/dl) 1.0 Ur Leukocyte Esterase (NEG) NEG Ur Microscopic SEDIMENT EXAMINED Urine RBC (0 - 5 /HPF) RARE Urine WBC (0 - 2 /HPF) 3-5 H Ur Epithelial Cells (NONE,FEW) MANY H Granular Casts (NONE /LPF) RARE H Urine Mucus (FEW,NONE) FEW Urine Hemoglobin (NEG) MOD H Urine Glucose (N MG/DL) 100 H 07/03 07/03 1020 1020 Chemistry Sodium (137 - 145 mmol/L) 126 L Potassium (3.5 - 5.1 mmol/L) 3.8 Chloride (98 - 107 mmol/L) 90 L Carbon Dioxide (22 - 30 mmol/L) 17 L Anion Gap (5 - 16) 19 H BUN (7 - 17 mg/dL) 38 H Creatinine (0.5 - 1.0 mg/dL) 4.8 H Estimated GFR (>60 ml/min) 10 L BUN/Creatinine Ratio (7 - 25 %) 7.9 Glucose (65 - 99 mg/dL) 178 H Calcium (8.4 - 10.2 mg/dL) 7.2 L Total Bilirubin (0.2 - 1.3 mg/dL) 4.4 H AST (14 - 36 U/L) 93 H ALT (9 - 52 U/L) 120 H Alkaline Phosphatase (<127 U/L) 47 Lactate Dehydrogenase (313 - 618 U/L) Pending Troponin I (< 0.11 ng/ml) < 0.01 Total Protein (6.3 - 8.2 g/dL) 5.4 L Albumin (3.5 - 5.0 g/dL) 2.6 L Globulin (1.9 - 4.2 gm/dL) 2.8 Albumin/Globulin Ratio (1.1 - 2.2 %) 0.9 L Total Beta HCG (NEGATIVE) NEGATIVE Hematology CBC w Diff MAN DIFF ORDERED WBC (4.8 - 10.8 /CUMM) 1.1 *L RBC (4.20 - 5.40 /CUMM) 4.03 L Hgb (12.0 - 16.0 G/DL) 11.3 L Hct (37 - 47 %) 33.4 L MCV (81.0 - 99.0 FL) 82.8 MCH (27.0 - 31.0 PG) 28.0 RDW (11.5 - 14.5 %) 14.6 H Plt Count (130 - 400 /CUMM) 49 L MPV (7.4 - 10.4 FL) 10.4 Lymphocytes (20.5 - 51.1 %) 93 H Monocytes (1.7 - 9.3 %) 3 Eosinophils (0 - 5.0 %) 3 Basophils (0.0 - 2.0 %) 1 Platelet Estimate (ADEQUATE) DECREASED Poikilocytosis 2+ Anisocytosis 1+ [place] Cells 2+ PUBS MCHC (33.0 - 37.0 G/DL) 33.8 Haptoglobin Pending Serology Hepatitis A IgM Ab (NONREACTIVE) Pending Hep Bs Antigen (NONREACTIVE) NONREACTIVE Hep B Core IgM Ab Conf (NONREACTIVE) Pending Hepatitis C Antibody (NONREACTIVE) Pending HIV 1&2 Ab Western Blot (NONREACTIVE) Pending Assessment/Plan Assessment/Recommendations Assessment: Oliguric acute kidney injury: Highest the differential is ischemic ATN from hypotension and the PEA arrest in the emergency room. There may be a superimposed prerenal azotemia and would recommend aggressive IV hydration. Urinalysis reveals only rare red blood cells thus doubt vasculitis or acute RPGN. The CAT scan without contrast is ordered we'll rule out obstructive uropathy. Olsen catheter has been placed and ruled out urinary retention and she is oliguric. Doubt hemolytic uremic syndrome however would check LDH and haptoglobin, and manual differential to assess for schistocytes. She is also listed as taking when necessary ibuprofen so NSAID use may have contributed to AK on as well as cocaine use his U tox positive for cocaine. Urinalysis reveals 2+ protein but this is the setting of oliguria and positive nitrates so is not diagnostic of glomerular disease. We'll check HIV which can cause renal failure with proteinuria especially given the leukopenia. Given the pancytopenia and renal failure would also recommend screening for monoclonal protein is cannot rule out myeloma. There is no emergent dialytic need at this point in time. Metabolic acidosis with elevated anion gap: Concerning for lactic acidosis. Follow-up lactic acid level. Would also check serum osms to calculate osmolar gap is cannot rule out ethylene glycol or methanol ingestions. Sepsis: Workup per ICU team for C. difficile, follow-up blood cultures, urine cultures and recommended broad-spectrum IV antibiotics. PEA arrest: Cause unclear but may been respiratory event. Cannot rule out hypovolemia induced arrest, recommend aggressive IV hydration, Recommendations: Check coags, haptoglobin, LDH, SPEP, serum free light chains, serum immunoelectrophoresis, manual differential to look for schistocytes Check lactic acid level and repeat ABG Check serum osms Patient may require bicarbonate drip if acidemia worsens No emergent dialytic need currently Check HIV Broad-spectrum IV antibiotics Thank you for the consultation. Discussed with ICU team in detail. Valdez Johnson M.D.
--- NOTE | 2016-07-03 14:31 | Cons- Cardiology ---
General Information and HPI Consulting Request Date of Consult: 07/03/16 Requested By: ABIGAIL SOLO MD Reason for Consult: Septic shock. Source of Information: old records Exam Limitations: unable to give history, clinical condition History of Present Illness: Ms. Zapata is a 40-year-old female with a history of long-standing tobacco use, migraine headache, subacute thyroiditis, anemia, and polysubstance abuse, who was recently evaluated in the ED on 07/01/2016 for complaints of congestion, dry cough, headache, and feverish feelings over the previous 4 days with a documented fever of 102.8 and and started on azithromycin for presumed upper respiratory tract infection. A check for influenza A was negative. No other laboratory work or CXR was performed. She returned today with complaints of cough productive of yellowish sputum, shortness of breath, diarrhea 2 days into taking the azithromycin, increased thirst, weakness, and chills and was found to be febrile to 102. She denied any urinary tract symptoms. She denied the use of any recent illegal/ recreational drugs. In the ED she developed altered mental status followed by slowed respirations, bradycardia and became severely hypotensive with agonal breathing and subsequent asystole requiring ACLS for approximally 4 minutes with epinephrine 2, intubation, initiation of Levophed, etc. A Montoya catheter was placed with minimal urine output. Initial laboratory work revealed pancytopenia, NELIDA, hyperglycemia, hyponatremia, etc. At present, she is obtunded and unable to provide any history. Allergies/Medications Allergies: Coded Allergies: amoxicillin (From AUGMENTIN) (Intermediate, VOMITING 07/03/16) clavulanic acid (From AUGMENTIN) (Intermediate, VOMITING 07/03/16) Home Med List: Albuterol Sulfate (Proair Hfa) 90 MCG HFA.AER.AD 2-4 PUF INH Q4-6 PRN PRN shortness of breath Azithromycin (Zithromax) 250 MG TABLET 1 TAB PO DAILY bronchitis Cefuroxime Axetil (Ceftin) 500 MG TABLET 1 TAB PO BID IFN with food Ibuprofen 600 MG TABLET 1 TAB PO Q6PRN PRN pain, fever with food Meloxicam (Mobic) 15 MG TABLET 1 TAB PO DAILY PRN PAIN Oxymetazoline HCl (Afrin) 0.05 % SPRAY 2 SPRAY NASB BID sinusitis Robitussin AC (Guaifenesin-Codeine Syrup) 200 MG-20 MG/10 ML LIQUID 10 ML PO Q6P PRN cough Sumatriptan Succinate (Imitrex) 6 MG/0.5 ML PEN.INJCTR 6 MG IM PRN MIGRAINES (Reported) Zolmitriptan (Zomig) 5 MG SPRAY 1 SPRAY KIRILL PRN MIGRAINES (Reported) Review of Systems Review of Systems: Unobtainable, as patient obtunded. Past History Travel History Traveled to [place] past 21 day No Medical History Neurological: migraine EENT: NONE Cardiovascular: NONE Respiratory: NONE Gastrointestinal: NONE Hepatic: NONE Renal: NONE Musculoskeletal: NONE Psychiatric: polysubstance abuse Endocrine: subacute thyroiditis Blood Disorders: anemia Cancer(s): NONE GYM TEACHER/Reproductive: NONE Surgical History Surgical History: Family History Relations & Conditions If Any: FATHER FH: kidney cancer FHx: thyroid cancer MOTHER FH: diabetes mellitus FHx: migraine headaches Psychosocial History Services at Home: None ETOH Use: denies use Illicit Drug Use: cocaine, heroin, DENIES CURRENT USE Functional Ability ADLs Independent: dressing, eating, toileting, bathing. Ambulation: independent IADLs Independent: shopping, housework, finances, food prep, telephone, transportation , medication admin. Employment History Employment: Employed Profession/Employer [employer] Exam & Diagnostic Data Vital Signs and I&O Vital Signs Date Time Temp Pulse Resp B/P Pulse O2 O2 Flow FiO2 Ox Delivery Rate 07/03 1342 99.7 121 18 70/00 100 Ventilator 100% 07/03 1336 97.0 118 20 60/00 07/03 1245 130 20 90/00 Ventilator 07/03 1240 100 07/03 1215 141 20 72/56 Nasal 5.0L Cannula 07/03 1145 94 Nasal 5.0L Cannula 07/03 1137 144 32 76/56 Nasal 5.0L Cannula 07/03 1030 Nasal 4.0L Cannula 07/03 1012 102.0 155 36 90/60 Nasal 3.0L Cannula Intake & Output 07/03 1600 07/03 0800 07/03 0000 07/02 1600 07/02 0000 Intake Total 2000 Output Total Balance 1999 Intake, IV 2000 Patient 180 lb Weight Physical Exam: Intubated/sedated middle-aged female. Vital signs: See above. HEENT: Normocephalic, atraumatic, dry mucous membranes. Neck: No JVD, no bruits. Lungs: Bilateral rhonchi. Heart: S1, S2 with no murmur, gallop, or rub appreciated. Abdomen: Soft, positive bowel sounds. Extremities: No edema. Labs/Dorian Results: Laboratory Tests 07/03 07/03 1111 1040 Blood Gas pH (7.35 - 7.45 PH) 7.33 L pCO2 (35 - 45 TORR) 24 L pO2 (80 - 100 TORR) 83 HCO3 (21 - 28 MEQ/L) 13 L ABG O2 Sat (Measured) (>96.0 %) 92.0 L P-50 (Temp Corrected) Y Carboxyhemoglobin (1.5 - 5.0 %) 0.3 L O2 Concentration % 5L Temperature (97.0 - 100.0 FARH) 102.0 H O2 Delivery Method NC Miscellaneous Phlebotomy Draw Site RIGHT RADIAL Toxicology Urine Opiates Screen (>2000 NG/ML) > 4000.00 H Methadone Screen (>300 NG/ML) 62 Barbiturate Screen (>200 NG/ML) 231 H Ur Phencyclidine Scrn (>25 NG/ML) < 6.00 Amphetamines Screen (>1000 NG/ML) 985 U Benzodiazepines Scrn (>200 NG/ML) 92 Urine Cocaine Screen (>300 NG/ML) 529 H Urine Cannabis Screen (>50 NG/ML) < 5.00 Urines Urinalysis MOD H Urine Color (YEL,AMB,STR) YEL Urine Clarity (CLEAR) CLDY H Urine pH (5.0 - 8.0) 6.0 Ur Specific [place] (1.001 - 1.035) 1.025 Urine Protein (NEG,<30 MG/DL) 100 H Urine Ketones (NEG) NEG Urine Nitrite (NEG) POS H Urine Bilirubin (NEG) POS@ICTO H Urine Urobilinogen (0.1 - 1.0 EU/dl) 1.0 Ur Leukocyte Esterase (NEG) NEG Ur Microscopic SEDIMENT EXAMINED Urine RBC (0 - 5 /HPF) RARE Urine WBC (0 - 2 /HPF) 3-5 H Ur Epithelial Cells (NONE,FEW) MANY H Granular Casts (NONE /LPF) RARE H Urine Mucus (FEW,NONE) FEW Urine Hemoglobin (NEG) MOD H Urine Glucose (N MG/DL) 100 H 07/03 07/03 1020 1020 Chemistry Sodium (137 - 145 mmol/L) 126 L Potassium (3.5 - 5.1 mmol/L) 3.8 Chloride (98 - 107 mmol/L) 90 L Carbon Dioxide (22 - 30 mmol/L) 17 L Anion Gap (5 - 16) 19 H BUN (7 - 17 mg/dL) 38 H Creatinine (0.5 - 1.0 mg/dL) 4.8 H Estimated GFR (>60 ml/min) 10 L BUN/Creatinine Ratio (7 - 25 %) 7.9 Glucose (65 - 99 mg/dL) 178 H Serum Osmolality (285 - 295 MOSM/KG) Pending Calcium (8.4 - 10.2 mg/dL) 7.2 L Total Bilirubin (0.2 - 1.3 mg/dL) 4.4 H AST (14 - 36 U/L) 93 H ALT (9 - 52 U/L) 120 H Alkaline Phosphatase (<127 U/L) 47 Lactate Dehydrogenase (313 - 618 U/L) 521 Troponin I (< 0.11 ng/ml) < 0.01 Total Protein (6.3 - 8.2 g/dL) 5.4 L Albumin (3.5 - 5.0 g/dL) 2.6 L Globulin (1.9 - 4.2 gm/dL) 2.8 Albumin/Globulin Ratio (1.1 - 2.2 %) 0.9 L Total Beta HCG (NEGATIVE) NEGATIVE Hematology CBC w Diff MAN DIFF ORDERED WBC (4.8 - 10.8 /CUMM) 1.1 *L RBC (4.20 - 5.40 /CUMM) 4.03 L Hgb (12.0 - 16.0 G/DL) 11.3 L Hct (37 - 47 %) 33.4 L MCV (81.0 - 99.0 FL) 82.8 MCH (27.0 - 31.0 PG) 28.0 RDW (11.5 - 14.5 %) 14.6 H Plt Count (130 - 400 /CUMM) 49 L MPV (7.4 - 10.4 FL) 10.4 Lymphocytes (20.5 - 51.1 %) 93 H Monocytes (1.7 - 9.3 %) 3 Eosinophils (0 - 5.0 %) 3 Basophils (0.0 - 2.0 %) 1 Platelet Estimate (ADEQUATE) DECREASED Poikilocytosis 2+ Anisocytosis 1+ Carlos Cells 2+ PUBS MCHC (33.0 - 37.0 G/DL) 33.8 Haptoglobin Pending Serology Hepatitis A IgM Ab (NONREACTIVE) Pending Hep Bs Antigen (NONREACTIVE) NONREACTIVE Hep B Core IgM Ab Conf (NONREACTIVE) Pending Hepatitis C Antibody (NONREACTIVE) Pending HIV 1&2 Ab Western Blot (NONREACTIVE) Pending Diagnostic Data EKG Results (07/03/2016) sinus tachycardia, consider left atrial abnormality, and minor nondiagnostic T-wave abnormalities. Faster rate when compared to previous tracing (06/24/2016). CXR Results (07/03/2016) Dense consolidation in right midlung, likely in the upper lobe, abutting the right minor fissure, suspicious for lobar pneumonia. There is also some extension into the right lower lobe. Close clinical correlation and follow- up chest x-ray is recommended post treatment to document resolution of findings and exclude an underlying mass. Assessment/Plan Assessment/Plan Cardiopulmonary arrest with metabolic acidosis and elevated anion gap likely secondary to septic/hypovolemic shock from pneumonia, dehydration with associated acute kidney injury, decreased perfusion during arrest, documented NSAID use in this middle-aged female with no cardiac history who was recently on antimicrobial therapy for presumed bronchitis. Recommendations: * Continue ICU admission with intubation, pressors support, volume resuscitation , broad-spectrum antimicrobial coverage, etc. * Follow-up lactic acid level, troponins, follow-up electrocardiograms. * Scheduled for echocardiogram to assess left ventricular systolic/diastolic function, right ventricular function, estimated PA pressures, etc. * Repeat laboratory work this afternoon. * Repeat CXR in a.m. * Follow-up cultures, stool for C. difficile, etc. * DVT prophylaxis. * Follow-up on nephrology, pulmonary medicine recommendations. Further recommendations will follow, Thank you. Consult Acknowledgment - Thank you for your consult request.
--- NOTE | 2016-07-03 15:07 | Event Note ---
Event Note Event Note: As pt's SBP < 80, she was unstable to be transported to get CT imagings. She was already on IV levophed. She'll get 2nd pressor of vasopressin and 3rd phenylephrine. Dr. Becerra & her family were updated. Will get stat abdominal x-ray to evaluate colitis/diarrhea.
--- NOTE | 2016-07-03 16:05 | RADIOLOGY REPORT ---
EXAMINATION: XR PORTABLE ABDOMEN CLINICAL INFORMATION: Diarrhea for 2 days. COMPARISON: None TECHNIQUE: Portable frontal view of the abdomen. FINDINGS: The evaluation is technically suboptimal due to motion-related artifacts. However, there is nonspecific diffuse soft tissue haziness visualized, may represent presence of ascites or fluid-filled bowel loops. The stomach is distended. Nonspecific few other central bowel loops also appear prominent. There is a radiopaque linear density visualized to the right of the mid abdomen, not appropriately localized. Followup CT scan of the abdomen and pelvis may be considered for further clarification, if clinically appropriate. IMPRESSION: 1. Suboptimal study. 2. Nonspecific gastric prominence. 3. Nonspecific diffuse haziness throughout the visualized abdomen, of uncertain etiology. 4. Followup CT scan of the abdomen and pelvis may be considered for further clarification, if clinically appropriate.
[2016-07-03] MEDS ORDERED: RELPAX40 M1 PO (17:01)
[2016-07-03] MEDS ORDERED: PROCHLORPERAZIN10 MG PO (17:02)
[2016-07-03] MEDS ORDERED: CLONAZEPAM0.5 M2 PO (17:03)
[2016-07-03] MEDS ORDERED: SUMATRIPTAN NAS (17:03)
[2016-07-03] MEDS ORDERED: STRATTERA40 M1 PO (17:04)
[2016-07-03] MEDS ORDERED: VYVANSE10 M1 PO (17:04)
[2016-07-03] MEDS ORDERED: IMITREX6 MG/0.52 AD (17:05)
[2016-07-03] MEDS ORDERED: NAPROXEN500 M2 PO (17:05)
[2016-07-03] MEDS ORDERED: MIRENA1 EACH (17:07)
--- NOTE | 2016-07-03 19:00 | Event Note ---
Event Note Event Note: On tele monitor, patient became bradycardic and then asystole. CPR was initiated at 16:16 pm with IV epinephrine & IV bicarbonate. Lt. femoral A-line was placed to monitor BP. Her pulse repeatedley became 30-40s, then asystole on monitor. CPR with multiple IV epinephrine, IV bicarb amples, IV epinephrie drips were given. CPR was continued until 17:27 pm, and pronounced by Dr. Schaffer at 17: 27pm.
--- NOTE | 2016-07-03 19:18 | Discharge Summary ---
Visit Information Visit Dates Admission Date: 07/03/16 Discharge Date: 07/03/16 Hospital Course Course Attending Physician: EDIL SIEGEL,ABIGAIL Primary Care Physician: CASIMIRO SIEGEL,MACHO Rowan Consulting Request: 1 Consulting Specialty: Nephrology Consulting Physician: Dr. Johnson Reason for Consult: Metabolic acidosis, acute kidney injury Consulting Request: 2 Consulting Specialty: Cardiology Consulting Physician: Dr. Harrell Reason for Consult: s/p CPR Hospital Course: 40 yo female with pmh of polysubstance abuse, subacute thyroiditis, migraine headache, anemia, current smoking (1 ppd > 10 yrs), who was treated for submandibular cellulitis in 2014, came from home due to worsening dyspnea for 3 days. She was restless with confusion, and most of information was from her boyfriend and her father. She and her boyfriend had upper respiratory symtpoms ( cough/sputum) from this Tuesday. Her boyfriend got better, but she developed fever at home, and she came to [facility] ED on 07/01 diagnosed as acute bronchitis/ sinusitis. Influenza A was negative at that time. She was discharged to home with po azithromycin. After 2 days of taking po azithromycin, she started having watery diarrhea > 5 times with mucous. She c/o abdominal pain but denies nausea/ vomiting. She has productive cough with yellowish sputum / shortness of breath. She denies dysuria or burning sensation. Current smoker. She denies any IV/INH drug abuse including cocaine/marijuana/heroine. Initial V/S: 102F ND 155 RR 36 BP 90/60 General Appearance Severe Distress, CONFUSED, NOT ORIENTED X TIME, patient feels very tired/restless Skin No Rashes, No Breakdown, No Significant Lesion HEENT Atraumatic, PERRLA, EOMI, DRY MOUTH Neck Supple, No JVD, No LAD Lymphatic Cervical nl Cardiovascular Normal S1, Normal S2, No Murmurs, TACHYCARDIC Lungs COARSE BREATHNG SOUND, RHONCHI/RALES BILATERALLY Abdomen Soft, ALL 4 QUADRANT MILD TENDERNESS +, NO rTD Neurological Strength at 5/5 X4 Ext, Normal Tone, Reflexes 2+, pt is confused, unable to follow commands, moving all 4 extremities Extremities No Edema, diminished pulses, clammy Vascular Pulses Symmetrical, diminished pulses Labs: WBC 1.1, Hb/Hct 11.3/33.4, PLT 49, Na 126, AG 17, BUN/Cr 38/4.8, bicarb 17 , lactic acid 6.4, trop< 0.01, U tox: opiate > 4000, barbiturate 231, cocaine 529, Hepatitis panel / HIV negative EKG: sinus tachycardia 147, normal axis, ND 132, QTc 426, PVCs ABG pH 7.33 pCO2 24 pO2 83, HCO3 13, Sat 92% on 5L CXR: Dense consolidation in right midlung, likely in the upper lobe, abutting the right minor fissure, suspicious for lobar pneumonia. There is also some extension into the right lower lobe. Close clinical correlation and follow-up chest x-ray is recommended post treatment to document resolution of findings and exclude an underlying mass. Hospital course: 40 yo female with history of polysubstance abuse with recent URI symptoms has acute respiratory failure with severe sepsis likely due to multilobar pneumonia / diarrhea (questionable C.diff) in the setting of cocaine/opiate abuse. She was given aggressive IV fluid resuscitation with NS > 6L, and blood/urine/sputum cultures /influenza/c.diff toxins were ordered. IV ceftriaxone was given initially. She was in severe respiratory distress with tachycardia / tachypnea. She had respiratory arrest in ED at 12:35 pm and she was coded about 4 mins. She was intubated by Dr. Schaffer, continuing cardiac compression, IV epinephrine 1mg x 2 times were given. Rt. femoral line was placed and IV levophed was initiated. Nephrology & cardiology consults were requested. Broad spectrum antibiotics including IV vancomycin, ceftazidime as well as IV azithromycin were given. Family was present in ED waiting area, and her condition was explained to them. CT head, chest, abdomen/pelvis WO contrasts were ordered, but her V/S was not stable enough to transfer to radiology department. Stat Abdomen x-ray was ordered to evaluate for possible ischemic colitis/toxic zay colon. It showed 1. Suboptimal study. 2. Nonspecific gastric prominence. 3. Nonspecific diffuse haziness throughout the visualized abdomen, of uncertain etiology. Repeat ABG on 14:55 showed worsening pH 7.06, pCO2 28, pO2 160, HCO3 7.7 with mechanical ventilation. IV bicarbonate drips were ordered and ventilation setting was changed. As her BP was not available on monitor due to severe hypotension, IV vasopressin and phenylephrine were added. Her BP was monitored continuously, but she was hemodynamically unstable to move out of ED. While trying to get A-line to monitor BP in ED, she became bradycardic then asystole around 16:16 pm. CPR was initiated at 16:16 pm with IV epinephrine & IV bicarbonate. Lt. femoral A- line was placed to monitor BP. Her pulse repeatedley became 30-40s, then asystole on monitor. CPR with multiple IV epinephrine, IV bicarb amples, IV epinephrie drips were given. During CPRs, family members were updated about her condition and poor prognosis. CPR was continued until 17:27 pm, and pronounced by Dr. Schaffer at 17:27pm. naturalization examiner was contacted, and her case number is [id number] Medina. Allergies: Coded Allergies: amoxicillin (From AUGMENTIN) (Intermediate, VOMITING 07/03/16) clavulanic acid (From AUGMENTIN) (Intermediate, VOMITING 07/03/16) Disposition Summary Disposition Principal Diagnosis: Acute respiratory failure s/p mechanical ventilation Septic shock secondary to multilobar pneumonia in the setting of opiate/cocaine abuse Acute kidney injury High anion gap metabolic acidosis with lactic acidosis Hyponatremia Transaminitis Diarrhea related with recent antibiotic use Pancytopenia Additional Diagnosis: Polysubstance abuse Migraine headache subacute thyroiditis Anemia Discharge Disposition: medical center director Discharge Instructions General Discharge Information Code Status: Full Code Patient's Diet: NA Patient's Activity: NA Follow-Up Instructions/Appts: NA Copies To: ABIGAIL SOLO MD Attending Review Statement Documenting Attending: ABIGAIL SOLO MD
[2016-07-03 19:48] VITALS: BP 70/00
== END 2016-07-03 21:17 | disposition expired | DRG 720 ==
LOC: ENRESERVTM → CANRESERV → ENRESERVDT → ERH 09:52 → ERHI 11:29 → CANBEDREQ 07-04 07:17
PROVIDERS: Emergency Medicine; ADMIT Internal Medicine Critical Care Medicine
PROC: 0BH17EZ Insertion of Endotracheal Airway into Trachea, Via Natural or Artificial Opening (ICD-10-PCS; principal; 2016-07-03)
PROC: 5A1935Z Respiratory Ventilation, Less than 24 Consecutive Hours (ICD-10-PCS; principal; 2016-07-03)
PROC: 06HM33Z Insertion of Infusion Device into Right Femoral Vein, Percutaneous Approach (ICD-10-PCS; 2016-07-03)
DX: A41.9 Sepsis, unspecified organism (principal); J96.01 Acute respiratory failure with hypoxia; R65.21 Severe sepsis with septic shock; N17.9 Acute kidney failure, unspecified; D61.818 Other pancytopenia; E87.2 Acidosis; J18.9 Pneumonia, unspecified organism; E87.1 Hypo-osmolality and hyponatremia; G43.909 Migraine, unspecified, not intractable, without status migrainosus; E06.1 Subacute thyroiditis; D64.9 Anemia, unspecified; D69.6 Thrombocytopenia, unspecified; E86.0 Dehydration; F17.210 Nicotine dependence, cigarettes, uncomplicated
CPT/HCPCS: ERO; 74000; 80307; 81001; 82436; 83010; 87040; 87070; 87086; 87389; 87804; 87804-59; 93005; 93010; 94799; 96360; 96361; 96374; 99291; J0456; J0610; J0696; J0713; J1071; J3370; J7040; J7060